=== PATIENT | female | born 1980 ===

== ENCOUNTER 2017-11-24 23:51 | Emergency (ER) | payer SELFPAY ==
[2017-11-25] VITALS: BMI 38.4
[2017-11-25 00:10] VITALS: BP 106/65; PULSE 83; RESP 16; TEMP 98.1; O2SAT 97
--- NOTE | 2017-11-25 00:14 | ED PDOC ---
Arrival/HPI - General Chief Complaint: Medical Clearance Time Seen by Provider: 11/25/17 00:02 Historian: Patient - History of Present Illness Narrative History of Present Illness (Text): 11/25/17 00:15 A 37 year old female was brought in by police for medical clearance. Patient is but denies any complaints. Patient denies any fever, shortness of breath, dizziness and headache or any other complaints at this time. Symptom Onset: Sudden Symptom Course: Unchanged Modifying Factors (Text): none Associated Symptoms (Text): none Past Medical History - Provider Review Nursing Documentation Reviewed: Yes - Psychiatric Hx Substance Use: Yes - Surgical History Hx Section: Yes - Anesthesia Hx Anesthesia: Yes Hx Anesthesia Reactions: No Hx Malignant Hyperthermia: No Family/Social History - Physician Review Nursing Documentation Reviewed: Yes Family/Social History: No Known Family HX Smoking Status: Heavy Smoker > 10 Cigarettes Daily Hx Alcohol Use: Yes Frequency of alcohol use: Socially Hx Substance Use: Yes Allergies/Home Meds Allergies/Adverse Reactions: Allergies No Known Allergies Allergy (Verified 11/25/17 00:00) Home Medications: Home Meds Medication Instructions Recorded Confirmed QUEtiapine [SEROquel] 100 mg PO DAILY 11/25/17 11/25/17 traZODone [Desyrel] 100 mg PO HS 11/25/17 11/25/17 Review of Systems - Physician Review All systems were reviewed & negative as marked: Yes - Review of Systems Constitutional: absent: Fevers Respiratory: absent: SOB Neurological: absent: Headache, Dizziness Physical Exam - Physical Exam Physical Exam Limitations: Uncooperative, Other (refusing physical exam) Vital Signs Reviewed: Yes Vital Signs Temp Pulse Resp BP Pulse Ox 11/25/17 00:09 98.1 F 83 16 106/65 97 Temperature: Afebrile Blood Pressure: Normal Pulse: Regular Respiratory Rate: Normal Appearance: Positive for: Well-Appearing, Non-Toxic, Comfortable Pain Distress: None Mental Status: Positive for: Alert and Oriented X 3 - Systems Exam Head: Present: Atraumatic, Normocephalic Pupils: Present: PERRL Psychiatric: Present: Alert, Oriented x 3 Medical Decision Making ED Course and Treatment: 11/25/17 00:11 Impression: A 37 year old female, , with no complaints, presents for medical clearance. Plan: -- Reassess and disposition Progress Notes: Patient is medically cleared for incarceration. - Scribe Statement The provider has reviewed the documentation as recorded by the Breana Shaikh Provider Scribe Attestation: All medical record entries made by the Scribe were at my direction and personally dictated by me. I have reviewed the chart and agree that the record accurately reflects my personal performance of the history, physical exam, medical decision making, and the department course for this patient. I have also personally directed, reviewed, and agree with the discharge instructions and disposition. Disposition/Present on Arrival - Present on Arrival Any Indicators Present on Arrival: No History of DVT/PE: No History of Uncontrolled Diabetes: No Urinary Catheter: No History of Decub. Ulcer: No History Surgical Site Infection Following: None - Disposition Have Diagnosis and Disposition been Completed?: Yes Diagnosis: Disposition: RELEASED IN POLICE CUSTODY Disposition Time: 01:30 Condition: GOOD Discharge Instructions (ExitCare): - The Fourth Month Additional Instructions: medically cleared for incarceration Forms: [employer] (Lithuanian)
== END 2017-11-25 01:00 ==
LOC: ED 23:51
DX: O26.90 Pregnancy related conditions, unspecified, unspecified trimester (principal)